=== PATIENT | female | born 1965 | race Caucasian/White ===

== ENCOUNTER 2017-09-21 19:21 | Emergency (ER) | payer SELFPAY, OTHER ==
[2017-09-21] MEDS: LORAZEPAM 1 MG TAB PO (19:51)
[2017-09-21] MEDS: IBUPROFEN 600 MG TAB PO (19:51)
== END 2017-09-21 21:58 | disposition home or self-care (01) ==
LOC: FTE 19:21
DX: S20.212A Contusion of left front wall of thorax, initial encounter (principal); V49.50XA Passenger injured in collision with unspecified motor vehicles in traffic accident, initial encounter
CPT/HCPCS: 71046; 73510; 99284-25